=== PATIENT | male | born 1985 ===

== ENCOUNTER 2018-03-25 18:33 | Emergency (ER) | payer OTHER ==
[2018-03-25 18:44] VITALS: BP 115/85; PULSE 76; RESP 16; TEMP 98.1; O2SAT 98
--- NOTE | 2018-03-25 20:00 | C.PDOC ---
History Of Present Illness 32 year old male presents to the emergency department complaining of a sharp pain to his left shoulder after sleeping on it in a certain position yesterday. Patient states the pain was minimal when he slept but woke up this morning with worse pain. He notes he has difficulty lifting his shoulder but denies any injuries or bruising. Time Seen by Provider: 03/25/18 19:03 Chief Complaint (Nursing): Upper Extremity Problem/Injury History Per: Patient History/Exam Limitations: no limitations Onset/Duration Of Symptoms: Days Current Symptoms Are (Timing): Still Present Past Medical History Reviewed: Historical Data, Nursing Documentation, Vital Signs Vital Signs: Last Vital Signs Temp 98.1 F 03/25/18 18:41 Pulse 76 03/25/18 18:41 Resp 16 03/25/18 18:41 BP 115/85 03/25/18 18:41 Pulse Ox 98 03/25/18 20:30 Family History: States: No Known Family Hx - Social History Hx Alcohol Use: No Hx Substance Use: No - Immunization History Hx Tetanus Toxoid Vaccination: No Hx Influenza Vaccination: No Hx Pneumococcal Vaccination: No Review Of Systems Except As Marked, All Systems Reviewed And Found Negative. Constitutional: Negative for: Fever Cardiovascular: Negative for: Chest Pain Respiratory: Negative for: Shortness of Breath Gastrointestinal: Negative for: Nausea, Vomiting Musculoskeletal: Positive for: Shoulder Pain (Left) Skin: Negative for: Bruising Neurological: Negative for: Weakness, Numbness Physical Exam - Physical Exam Appears: Non-toxic, No Acute Distress Skin: Warm, Dry, No Rash Head: Atraumatic, Normacephalic Eye(s): bilateral: Normal Inspection Oral Mucosa: Moist Neck: Normal ROM, Supple Chest: Symmetrical, No Tenderness Cardiovascular: Rhythm Regular, No Friction Rub, No Murmur Respiratory: Normal Breath Sounds, No Rales, No Rhonchi, No Wheezing Extremity: Tenderness (to anterior L shoulder, pain with abduction ), Capillary Refill (less than 2 seconds), No Deformity (of L shoulder), No Swelling Extremity: Left: Other (Elbow and wrist normal ) Pulses: Left Radial: Normal, Right Radial: Normal Neurological/Psych: Oriented x3, Normal Speech, Normal Motor Gait: Steady ED Course And Treatment O2 Sat by Pulse Oximetry: 98 (RA) Pulse Ox Interpretation: Normal Medical Decision Making Medical Decision Making: Plan: -Left Shoulder X-Ray -Motrin 600 mg PO -Tylenol 975 mg PO Shoulder xrays are negative for fracture or dislocation. Sling applied by pharmacy picking tech. Disposition - Disposition Referrals: [facility] [Outside] Disposition: HOME/ ROUTINE Disposition Time: 19:59 Condition: GOOD Additional Instructions: Follow up with the medical doctor/clinic within 1-2 days. return if worsened. Prescriptions: Naproxen [Naprosyn] 500 mg PO BID #20 tab Instructions: Tendonitis Forms: BlogCN (Chinese) - Clinical Impression Clinical Impression: Shoulder pain - PA / LEAD PAINTER / Resident Statement MD/DO has reviewed & agrees with the documentation as recorded. - Scribe Statement The provider has reviewed the documentation as recorded by the Scribe Sloane Dhillon All medical record entries made by the Juan Danielibmarta were at my direction and personally dictated by me. I have reviewed the chart and agree that the record accurately reflects my personal performance of the history, physical exam, medical decision making, and the department course for this patient. I have also personally directed, reviewed, and agree with the discharge instructions and disposition.
--- NOTE | 2018-03-26 09:09 | RAD ---
Date of service: 03/25/2018 PROCEDURE: Radiographs of the Left Shoulder HISTORY: shoulder pain, COMPARISON: No prior. FINDINGS: BONES: No evidence of acute displaced fracture nor dislocation. Small elliptical shaped sclerotic densities overlying the humeral head probably represent small bone islands or osteomas. JOINTS: Normal. Glenohumeral and acromioclavicular joints preserved. No osteoarthritis. SOFT TISSUES: Normal. OTHER FINDINGS: None. IMPRESSION: Normal radiographs of the left shoulder.
== END 2018-03-25 20:17 | disposition home or self-care (01) ==
LOC: C.ER 18:33
DX: M25.512 Pain in left shoulder (principal)